=== PATIENT | female | born 1995 | race Caucasian/White ===

== ENCOUNTER 2018-01-13 13:05 | Emergency (ER) | payer OTHER ==
[2018-01-13 13:45] LABS: PLATELET COUNT 200 10^3/uL (150-400)
--- NOTE | 2018-01-13 13:56 | EDPHY ---
H & P Stated Complaint: heavy vaginal bleeding 1.5 weeks ago, cramping - Medical/Surgical History Hx Asthma: No Hx Chronic Respiratory Disease: No Hx Diabetes: No Hx Cardiac Disease: No Hx Renal Disease: No Hx Cirrhosis: No Hx Alcoholism: No Hx HIV/AIDS: No Hx Splenectomy or Spleen Trauma: No Other PMH: med hx- migraines, PCOS,. surg-wisdom teeth - Social History Smoking Status: Never smoked <Chuck Parker - Last Filed: 01/13/18 14:32> <Hieu Grossman - Last Filed: 01/13/18 15:54> Time Seen by Provider: 01/13/18 13:13 HPI/ROS: Chief Complaint: Abnormal vaginal bleeding HPI: 22-year-old who has a IUD in place is presenting with 1/2 weeks of very heavy abnormal vaginal bleeding. Patient states she is soaking pad about every 30 min for the last week and half. She is having some low pelvic cramping. Last no menstrual cycle was in August. She has a history of polycystic ovary syndrome and is usually irregular. No lightheadedness or fainting. No chest pain or palpitations. There are no aggravating or alleviating factors. She states she has actually been using her daughter's diapers because the heavy bleeding. She is passing clots. She does not currently have an OBGYN doctor. ROS: 10 point Review of Systems is negative except as noted in the HPI. PMH: Polycystic ovary syndrome Social History: No smoking, no alcohol, no recreational drug use Family History: non-contributory Physical Exam: Gen: Awake, Alert, No Distress HEENT: Nose: no rhinorrhea Eyes: PERRLA, EOMI Mouth: Moist mucosa Neck: Supple, no JVD Chest: nontender, lungs clear to auscultation Heart: S1, S2 normal, no murmur Abd: Soft, non-tender, no guarding Back: no CVA tenderness, no midline tenderness Ext: no edema, non-tender Skin: no rash Neuro: CN II-XII intact, Sensation grossly intact, Strength 5/5 in bilateral upper and lower extremities (Chuck Parker) Constitutional: Initial Vital Signs Temperature (C) 37.0 C 01/13/18 13:14 Heart Rate 74 01/13/18 13:14 Respiratory Rate 18 01/13/18 13:14 Blood Pressure 128/92 H 01/13/18 13:14 O2 Sat (%) 95 01/13/18 13:14 O2 Delivery Mode Room Air Allergies/Adverse Reactions: latex Allergy (Verified 01/13/18 13:13) Home Medications: Medication Instructions Recorded medroxyPROGESTERone [Provera 10 mg 10 mg PO DAILY 10 Days tab 01/13/18 (*)] Medical Decision Making <Chuck Parker - Last Filed: 01/13/18 14:32> - Diagnostics Imaging: Discussed imaging studies w/ call taker Radiologist <Hieu Grossman - Last Filed: 01/13/18 15:54> - Diagnostics Imaging Results: Imaging Impressions Pelvic/Renal Ultrasound 01/13/18 13:52 Impression: 1. Appropriately-positioned intrauterine device. 2. There is no focal myometrial abnormality. 3. There is a 2 cm corpus luteum cyst associated with the right ovary, with no torsion or free fluid. 4. Mild bilateral pelvic venous congestion. Findings were discussed with Hieu Grossman MD at 15:45, on 01/13/2018. . ED Course/Re-evaluation: 22-year-old woman presenting with menorrhagia. She is not . Her H&H are normal. She does have an IUD in place. For this reason I will obtain an ultrasound to verify correct placement. I anticipate this to be normal. If so the patient will be placed on Provera 10 mg daily times 10 days. I have referred to follow up with OBGYN for further evaluation. (Chuck Parker) I reviewed the patient's ultrasound findings as noted per Dr. Rebollar above. I spoke with patient at 15 50. She is comfortable at this time. I counseled her regarding her ultrasound findings-small right corpus luteum cyst, and some venous congestion, otherwise normal. She understands the plan to start on OCPs and follow up with OBGYN. (Hieu Grossman) - Data Points Laboratory Results: Laboratory Results 01/13/18 13:40 01/13/18 13:40 01/13/18 01/13/18 01/13/18 13:40 13:40 13:40 WBC 4.70 10^3/uL 10^3/uL (3.80-9.50) RBC 4.52 10^6/uL 10^6/uL (4.18-5.33) Hgb 13.1 g/dL g/dL (12.6-16.3) Hct 37.3 % L % (38.0-47.0) MCV 82.5 fL fL (81.5-99.8) MCH 29.0 pg pg (27.9-34.1) MCHC 35.1 g/dL g/dL (32.4-36.7) RDW 12.3 % % (11.5-15.2) Plt Count 200 10^3/uL 10^3/uL (150-400) MPV 9.2 fL fL (8.7-11.7) Neut % (Auto) 47.4 % % (39.3-74.2) Lymph % (Auto) 44.3 % % (15.0-45.0) Stone % (Auto) 6.6 % % (4.5-13.0) Eos % (Auto) 1.3 % % (0.6-7.6) Baso % (Auto) 0.4 % % (0.3-1.7) Nucleat RBC Rel Count 0.0 % % (0.0-0.2) Absolute Neuts (auto) 2.23 10^3/uL 10^3/uL (1.70-6.50) Absolute Lymphs (auto) 2.08 10^3/uL 10^3/uL (1.00-3.00) Absolute Monos (auto) 0.31 10^3/uL 10^3/uL (0.30-0.80) Absolute Eos (auto) 0.06 10^3/uL 10^3/uL (0.03-0.40) Absolute Basos (auto) 0.02 10^3/uL 10^3/uL (0.02-0.10) Absolute Nucleated RBC 0.00 10^3/uL 10^3/uL (0-0.01) Immature Gran % 0.0 % % (0.0-1.1) Immature Gran # 0.00 10^3/uL 10^3/uL (0.00-0.10) Sodium 142 mEq/L mEq/L (135-145) Potassium 3.9 mEq/L mEq/L (3.3-5.0) Chloride 105 mEq/L mEq/L (97-110) Carbon Dioxide 26 mEq/l mEq/l (22-31) Anion Gap 11 mEq/L mEq/L (8-16) BUN 11 mg/dL mg/dL (7-23) Creatinine 0.7 mg/dL mg/dL (0.6-1.0) Estimated GFR > 60 Glucose 84 mg/dL mg/dL (70-100) Calcium 8.9 mg/dL mg/dL (8.5-10.4) Beta HCG, Qual NEGATIVE Departure <Chuck Parker - Last Filed: 01/13/18 14:32> <Hieu Grossman - Last Filed: 01/13/18 15:54> - Departure Disposition: Home, Routine, Self-Care Clinical Impression: Abnormal vaginal bleeding Condition: Good Instructions: Menorrhagia (ED) Additional Instructions: Follow up with OBGYN 4-5 days for further evaluation. Return to the emergency department for increasing bleeding, pain, lightheadedness, fainting, fevers, chills, or any other concerns. Referrals: Carolyn Rodríguez MD [Primary Care Provider] - As per Instructions Blanca Powers MD [Medical Doctor] - As per Instructions Prescriptions: medroxyPROGESTERone [Provera 10 mg (*)] 10 mg PO DAILY 10 Days tab
[2018-01-13 16:22] VITALS: BP 117/81
== END 2018-01-13 16:03 | disposition home or self-care (01) ==
LOC: CED 13:05
DX: N93.9 Abnormal uterine and vaginal bleeding, unspecified (principal)
CPT/HCPCS: 76856-PO; 80048-PO; 84703-PO; 85025-PO

== ENCOUNTER 2018-09-01 15:29 | Emergency (ER) | payer MEDICAID, OTHER ==
[2018-09-01] MEDS ORDERED: KETOROLAC 15 MG/1 ML SDV IVP ONE (15:58)
[2018-09-01] MEDS ORDERED: HALOPERIDOL LACT 5 MG/ML INJ IVP ONE (15:58)
[2018-09-01] MEDS ORDERED: NS 1,000 ML IV ONE (15:58)
[2018-09-01] MEDS ORDERED: DEXAMETHASONE 10 MG/ML VIAL IVP ONE (15:59)
--- NOTE | 2018-09-01 16:02 | EDPHY ---
H & P Stated Complaint: christensen x 1.5 weeks Time Seen by Provider: 09/01/18 15:33 HPI/ROS: Chief Complaint: Headache HPI: 23-year-old woman who has a history of migraine headaches in the past is presenting with a persistent headache for the last 1 and half weeks. He waxes and wanes in intensity to 4/10 to 8/10. It is been associated with some dizziness yesterday. She also had an episode 2 days ago a seeing some white spots. Headache is behind her left eye ankle is to the back of her head. It is not similar to her prior headaches and that she has not had a any nausea or vomiting associated with this. No falls or other injuries. She has had extensive workup for migraine headaches in the past including several MRIs and other testing done. This was performed in [place]. She does have photophobia. She has taken CBD and THC appointments with no affect. She is not currently on any other medications. She does have a history of polycystic ovarian syndrome. Last menstrual. Was 1 year ago. She has been worked up for this by OBGYN as well. No fevers or chills. No cough or congestion. No nausea or vomiting. No chest pain or shortness of breath. Headache was gradual in onset. Is not the worst headache of her life. ROS: 10 systems were reviewed and were negative except those elements noted in the HPI. PMH: Migraine headaches, PCOS Social History: No smoking, no alcohol, occasional CBD oil and THC oil Family History: non-contributory Physical Exam: Gen: Awake, Alert, No Distress HEENT: Nose: no rhinorrhea Eyes: PERRLA, EOMI, normal funduscopic exam, no papilledema Mouth: Moist mucosa Neck: Supple, no JVD Chest: nontender, lungs clear to auscultation Heart: S1, S2 normal, no murmur Abd: Soft, non-tender, no guarding Back: no CVA tenderness, no midline tenderness Ext: no edema, non-tender Skin: no rash Neuro: CN II-XII intact, Sensation grossly intact, Strength 5/5 in bilateral upper and lower extremities, normal finger-nose, normal heel-loaiza, mildly positive Romberg. Normal gait. - Personal History LMP (Females 10-55): Over 28 Days Ago Current Tetanus/Diphtheria Vaccine: No Current Tetanus Diphtheria and Acellular Pertussis (TDAP): No - Medical/Surgical History Hx Asthma: No Hx Chronic Respiratory Disease: No Hx Diabetes: No Hx Cardiac Disease: No Hx Renal Disease: No Hx Cirrhosis: No Hx Alcoholism: No Hx HIV/AIDS: No Hx Splenectomy or Spleen Trauma: No Other PMH: med hx- migraines, PCOS,. surg-wisdom teeth. Hormone issues irr periods - Social History Smoking Status: Never smoked Constitutional: Initial Vital Signs Temperature (C) 37.1 C 09/01/18 15:35 Heart Rate 80 09/01/18 15:35 Respiratory Rate 16 09/01/18 15:35 Blood Pressure 118/77 09/01/18 15:35 O2 Sat (%) 97 09/01/18 15:35 O2 Delivery Mode Room Air Allergies/Adverse Reactions: latex Allergy (Verified 09/01/18 15:40) Home Medications: Medication Instructions Recorded Cbd Oil 09/01/18 Medical Decision Making ED Course/Re-evaluation: [age] year with a history migraine headaches presenting with week and half of headache. She has not have any red flags for acute infection or bleed. Normal neurologic exam. Plan will be for migraine cocktail and reassess. 1710 patient's headache is gone. Laboratory evaluations are normal. She is currently symptom free. Plan will be for discharge with referral for neurology follow-up as an outpatient. - Data Points Laboratory Results: 09/01/18 16:18 POC Sodium 144 mEq/L mEq/L (135-145) POC Potassium 3.5 mEq/L mEq/L (3.3-5.0) POC Chloride 108.0 mEq/L mEq/L (97-110) POC Total CO2 28 mEq/L mEq/L (22-31) POC BUN 11 mg/dL mg/dL (7-23) POC Creatinine 1.0 mg/dL mg/dL (0.6-1.0) POC Glucose 96 mg/dL mg/dL (70-100) POC Calcium 9.5 mg/dL mg/dL (8.5-10.4) Medications Given: Discontinued Medications Dexamethasone (Decadron Injection) 10 mg IVP EDNOW ONE Stop: 09/01/18 16:00 Last Admin: 09/01/18 16:30 Dose: 10 mg Diphenhydramine HCl (Benadryl Injection) 50 mg IVP EDNOW ONE Stop: 09/01/18 15:59 Last Admin: 09/01/18 16:28 Dose: 50 mg Haloperidol Lactate (Haldol Injection) 2.5 mg IVP EDNOW ONE Stop: 09/01/18 15:59 Last Admin: 09/01/18 16:38 Dose: 5 mg Sodium Chloride (Ns) 1,000 mls @ 0 mls/hr IV ONCE ONE; Wide Open PRN Reason: Protocol Stop: 09/01/18 15:59 Last Admin: 09/01/18 16:25 Dose: 1,000 mls Ketorolac Tromethamine (Toradol) 15 mg IVP EDNOW ONE Stop: 09/01/18 15:59 Last Admin: 09/01/18 16:35 Dose: 15 mg Point of Care Test Results: Chemistry 09/01/18 16:18 POC Sodium 144 mEq/L mEq/L (135-145) POC Potassium 3.5 mEq/L mEq/L (3.3-5.0) POC Chloride 108.0 mEq/L mEq/L (97-110) POC Total CO2 28 mEq/L mEq/L (22-31) POC BUN 11 mg/dL mg/dL (7-23) POC Creatinine 1.0 mg/dL mg/dL (0.6-1.0) POC Glucose 96 mg/dL mg/dL (70-100) POC Calcium 9.5 mg/dL mg/dL (8.5-10.4) Departure - Departure Disposition: Home, Routine, Self-Care Clinical Impression: Migraine headache Condition: Good Instructions: Migraine Headache (ED) Additional Instructions: Follow up with neurologist in 3-4 days for further evaluation. Return emergency department for worsening headache, fevers or chills, nausea, vomiting, fainting, or any other concerns. Referrals: Jose Miguel Escobar MD [Primary Care Provider] - As per Instructions David Stover MD [Medical Doctor] - As per Instructions
[2018-09-01] MEDS ORDERED: DEXAMETHASONE 4 MG/ML VIAL ONE ×2 (16:10)
[2018-09-01 18:23] VITALS: BP 106/74
== END 2018-09-01 18:20 | disposition home or self-care (01) ==
LOC: CED 15:29
DX: G43.909 Migraine, unspecified, not intractable, without status migrainosus (principal); E86.9 Volume depletion, unspecified
CPT/HCPCS: 80048-ER; 96361-ER; 96374-ER; 96375-ER; 99284-ER; J1100; J1200; J1630; J1885